=== PATIENT | female | born 1975 | race American Indian/Alaskan Native ===

== ENCOUNTER 2019-03-08 06:48 | Emergency (ER) | payer SELFPAY ==
[2019-03-08] MEDS ORDERED: ASPIRIN PO ONE (07:03)
[2019-03-08 07:28] LABS: Basophils % (Auto) 0.6 % (0.0-1.8); Eosinophils % (Auto) 0.8 % (0.0-4.3); Hematocrit 31.4 % (30.3-42.9); Hemoglobin 10.4 gm/dl (10.1-14.3); Lymphocytes # (Auto) 2.6 K/mm3 (1.2-5.4); Lymphocytes % (Auto) 45.5 % (13.4-35.0); Mean Corpuscular HGB Conc 33 % (30-34); Mean Corpuscular Volume 82 fl (79-97); Monocytes # (Auto) 0.3 K/mm3 (0.0-0.8); Monocytes % (Auto) 5.4 % (0.0-7.3); Platelet Count 234 K/mm3 (140-440); Red Blood Count 3.84 M/mm3 (3.65-5.03); Red Cell Distribution Width 17.7 % (13.2-15.2)
[2019-03-08 07:41] LABS: BUN/Creatinine Ratio 13; Blood Urea Nitrogen 10 mg/dL (7-17); Calcium 8.9 mg/dL (8.4-10.2); Hemolysis Index 17
[2019-03-08] MEDS ORDERED: NITRO-BID 2% TP ONE ×2 (07:58→08:00)
[2019-03-08] MEDS ORDERED: APRESOLINE IV ONE (07:58)
[2019-03-08] MEDS ORDERED: APRESOLINE ONE (08:00)
--- NOTE | 2019-03-08 08:00 | Emergency Department Report ---
ED Chest Pain HPI - General Chief Complaint: Chest Pain Stated Complaint: RT SIDE PAIN/CHEST PAIN Time Seen by Provider: 03/08/19 07:57 Source: patient Mode of arrival: Ambulatory Limitations: No Limitations - History of Present Illness Initial Comments: This is a 43-year-old female with episodic medical care primarily in the emergency department. She states that she was given a prescription for her high blood pressure the last time she was here which appears to be 01/10/2019. She never got it filled. She presents today because she has soreness in her right chest. She stated that she was on her way to work. She was getting ready and putting on her weight. She states her right chest was sore when she was putting on her way. She does not report any radiating pain or any symptoms in the right arm. It is just the anterior pectoral region that is sore. She does not report any shortness of breath cough or recent travel. She was found to have substantial hypertension. He states that her period is over 2 (expected February 21). MD Complaint: chest pain -: Gradual Onset: during rest Pain Location: right chest Pain Radiation: none Severity: moderate Quality: aching Consistency: intermittent Improves With: nothing Worsens With: movement Context: other re: denies: nausea, vomting, diaphoresis, dyspnea, sense of impending doom Other Symptoms: denies: cough, fever, syncope Treatments Prior to Arrival: none - Related Data Previous Rx's Medication Instructions Recorded Last Taken Type Acetaminophen [Tylenol 8 Hour] 650 mg PO TID #30 tablet.er 07/27/18 Unknown Rx Acetaminophen [Tylenol Arthritis] 650 mg PO Q6HR PRN #30 tablet.er 10/02/18 Unknown Rx Ibuprofen [Motrin] 600 mg PO Q8H PRN #30 tablet 10/02/18 Unknown Rx amLODIPine [Norvasc] 5 mg PO DAILY #30 tab 10/02/18 Unknown Rx Dicyclomine [Bentyl] 10 mg PO QID #20 capsule 01/10/19 Unknown Rx Ondansetron [Zofran Odt] 4 mg PO Q8HR #12 tab.rapdis 01/10/19 Unknown Rx Labetalol [Labetalol 100mg TAB] 100 mg PO BID #60 tablet 03/08/19 Unknown Rx Losartan/Hydrochlorothiazide 1 each PO DAILY #30 tablet 03/08/19 Unknown Rx [Losartan-Hctz 50-12.5 mg Tab] Allergies Allergy/AdvReac Type Severity Reaction Status Date / Time No Known Allergies Allergy Unverified 11/21/14 11:30 Heart Score - HEART Score History: Slightly suspicious EKG: Non-specific Age: < 45 Risk factors: 1-2 risk factors Troponin: < normal limit HEART Score: 2 - Critical Actions Critical Actions: 0-3 pts:0.9-1.7%risk of adverse cardiac event.Candidate for discharge ED Review of Systems ROS: Stated complaint: RT SIDE PAIN/CHEST PAIN Other details as noted in HPI Constitutional: denies: chills, fever Eyes: denies: eye pain, eye discharge, vision change ENT: denies: ear pain, throat pain Respiratory: denies: cough, shortness of breath, wheezing Cardiovascular: chest pain. denies: palpitations Endocrine: no symptoms reported Gastrointestinal: denies: abdominal pain, nausea, diarrhea Genitourinary: denies: urgency, dysuria, discharge Musculoskeletal: denies: back pain, joint swelling, arthralgia Skin: denies: rash, lesions Neurological: denies: headache, weakness, paresthesias Psychiatric: denies: anxiety, depression Hematological/Lymphatic: denies: easy bleeding, easy bruising ED Past Medical Hx - Past Medical History Previous Medical History?: Yes Hx Hypertension: Yes Hx Diabetes: No Hx Deep Vein Thrombosis: No Hx Renal Disease: No Hx Sickle Cell Disease: No Hx Seizures: No Hx Asthma: No - Social History Smoking Status: Current Every Day Smoker Other Social History: no recent travel - Medications Home Medications: Home Medications Medication Instructions Recorded Confirmed Last Taken Type Acetaminophen [Tylenol 8 Hour] 650 mg PO TID #30 tablet.er 07/27/18 Unknown Rx Acetaminophen [Tylenol Arthritis] 650 mg PO Q6HR PRN #30 tablet.er 10/02/18 Unknown Rx Ibuprofen [Motrin] 600 mg PO Q8H PRN #30 tablet 10/02/18 Unknown Rx amLODIPine [Norvasc] 5 mg PO DAILY #30 tab 10/02/18 Unknown Rx Dicyclomine [Bentyl] 10 mg PO QID #20 capsule 01/10/19 Unknown Rx Ondansetron [Zofran Odt] 4 mg PO Q8HR #12 tab.rapdis 01/10/19 Unknown Rx Labetalol [Labetalol 100mg TAB] 100 mg PO BID #60 tablet 03/08/19 Unknown Rx Losartan/Hydrochlorothiazide 1 each PO DAILY #30 tablet 03/08/19 Unknown Rx [Losartan-Hctz 50-12.5 mg Tab] ED Physical Exam - General Limitations: No Limitations General appearance: alert, in no apparent distress - Head Head exam: Present: atraumatic, normocephalic - Eye Eye exam: Present: normal appearance. Absent: scleral icterus - ENT ENT exam: Present: mucous membranes moist - Neck Neck exam: Present: normal inspection. Absent: meningismus - Respiratory Respiratory exam: Present: normal lung sounds bilaterally, chest wall tenderness (R). Absent: respiratory distress - Cardiovascular Cardiovascular Exam: Present: regular rate, normal rhythm. Absent: systolic murmur, diastolic murmur, rubs, gallop - GI/Abdominal GI/Abdominal exam: Present: soft, normal bowel sounds. Absent: distended, tenderness, guarding, rebound, rigid - Extremities Exam Extremities exam: Present: normal inspection, normal capillary refill. Absent: pedal edema, joint swelling, calf tenderness - Back Exam Back exam: Present: normal inspection - Neurological Exam Neurological exam: Present: alert, oriented X3 - Psychiatric Psychiatric exam: Present: normal affect, normal mood - Skin Skin exam: Present: warm, dry, intact, normal color. Absent: rash ED Course Vital Signs 03/08/19 03/08/19 03/08/19 06:58 07:45 08:00 Temperature 97.6 F Pulse Rate 77 63 63 Respiratory 16 14 19 Rate Blood Pressure 197/135 198/110 202/115 Blood Pressure [Right] O2 Sat by Pulse 99 96 Oximetry 03/08/19 03/08/19 03/08/19 08:07 08:08 08:09 Temperature 98.2 F Pulse Rate 68 63 Respiratory 24 22 Rate Blood Pressure 202/115 Blood Pressure 202/115 [Right] O2 Sat by Pulse 98 98 Oximetry 03/08/19 03/08/19 03/08/19 09:00 09:02 09:10 Temperature Pulse Rate 87 83 83 Respiratory 14 16 Rate Blood Pressure 176/144 188/116 Blood Pressure 188/116 [Right] O2 Sat by Pulse 95 99 Oximetry 03/08/19 03/08/19 03/08/19 09:15 09:30 09:32 Temperature Pulse Rate 65 67 68 Respiratory 21 12 12 Rate Blood Pressure 172/108 180/112 Blood Pressure 179/104 [Right] O2 Sat by Pulse 97 96 98 Oximetry 03/08/19 03/08/19 03/08/19 09:46 10:00 10:18 Temperature Pulse Rate 64 65 67 Respiratory 21 17 17 Rate Blood Pressure 204/123 181/106 181/106 Blood Pressure [Right] O2 Sat by Pulse 98 97 98 Oximetry 03/08/19 10:43 Temperature Pulse Rate 63 Respiratory 19 Rate Blood Pressure Blood Pressure 158/100 [Right] O2 Sat by Pulse 98 Oximetry TRACE score - Trace Score Age > 65: (0) No Aspirin use within the Past 7 Days: (0) No 3 or more CAD Risk Factors: (0) No 2 or more Angina events in past 24 hrs: (0) No Known CAD with more than 50% Stenosis: (0) No Elevated Cardiac Markers: (0) No ST Deviation Greater than 0.5mm: (0) No TRACE Score: 0 ED Medical Decision Making - Lab Data Result diagrams: 03/08/19 07:15 03/08/19 07:15 Laboratory Results - last 24 hr 03/08/19 03/08/19 07:15 07:15 WBC 5.7 RBC 3.84 Hgb 10.4 Hct 31.4 MCV 82 MCH 27 L MCHC 33 RDW 17.7 H Plt Count 234 Lymph % (Auto) 45.5 H [place] % (Auto) 5.4 Eos % (Auto) 0.8 Baso % (Auto) 0.6 Lymph # 2.6 [place] # 0.3 Eos # 0.0 Baso # 0.0 Seg Neutrophils % 47.7 Seg Neutrophils # 2.7 Sodium 142 Potassium 3.5 L Chloride 105.5 Carbon Dioxide 28 Anion Gap 12 BUN 10 Creatinine 0.8 Estimated GFR > 60 BUN/Creatinine Ratio 13 Glucose 106 H Calcium 8.9 Troponin T < 0.010 Laboratory Results - last 24 hr 03/08/19 03/08/19 03/08/19 07:15 07:15 08:33 WBC 5.7 RBC 3.84 Hgb 10.4 Hct 31.4 MCV 82 MCH 27 L MCHC 33 RDW 17.7 H Plt Count 234 Lymph % (Auto) 45.5 H [place] % (Auto) 5.4 Eos % (Auto) 0.8 Baso % (Auto) 0.6 Lymph # 2.6 [place] # 0.3 Eos # 0.0 Baso # 0.0 Seg Neutrophils % 47.7 Seg Neutrophils # 2.7 PT 12.0 L INR 0.91 APTT 28.0 Sodium 142 Potassium 3.5 L Chloride 105.5 Carbon Dioxide 28 Anion Gap 12 BUN 10 Creatinine 0.8 Estimated GFR > 60 BUN/Creatinine Ratio 13 Glucose 106 H Calcium 8.9 Troponin T < 0.010 Urine Opiates Screen Urine Methadone Screen Ur Barbiturates Screen Ur Phencyclidine Scrn Ur Amphetamines Screen U Benzodiazepines Scrn Urine Cocaine Screen 03/08/19 08:37 WBC RBC Hgb Hct MCV MCH MCHC RDW Plt Count Lymph % (Auto) [place] % (Auto) Eos % (Auto) Baso % (Auto) Lymph # [place] # Eos # Baso # Seg Neutrophils % Seg Neutrophils # PT INR APTT Sodium Potassium Chloride Carbon Dioxide Anion Gap BUN Creatinine Estimated GFR BUN/Creatinine Ratio Glucose Calcium Troponin T Urine Opiates Screen Presumptive negative Urine Methadone Screen Presumptive negative Ur Barbiturates Screen Presumptive negative Ur Phencyclidine Scrn Presumptive negative Ur Amphetamines Screen Presumptive negative U Benzodiazepines Scrn Presumptive negative Urine Cocaine Screen Presumptive negative Laboratory Results - last 24 hr 03/08/19 03/08/19 03/08/19 07:15 07:15 07:15 WBC 5.7 RBC 3.84 Hgb 10.4 Hct 31.4 MCV 82 MCH 27 L MCHC 33 RDW 17.7 H Plt Count 234 Lymph % (Auto) 45.5 H [place] % (Auto) 5.4 Eos % (Auto) 0.8 Baso % (Auto) 0.6 Lymph # 2.6 [place] # 0.3 Eos # 0.0 Baso # 0.0 Seg Neutrophils % 47.7 Seg Neutrophils # 2.7 PT INR APTT D-Dimer Sodium 142 Potassium 3.5 L Chloride 105.5 Carbon Dioxide 28 Anion Gap 12 BUN 10 Creatinine 0.8 Estimated GFR > 60 BUN/Creatinine Ratio 13 Glucose 106 H Calcium 8.9 Magnesium Total Bilirubin Direct Bilirubin Indirect Bilirubin AST ALT Alkaline Phosphatase Total Creatine Kinase CK-MB (CK-2) CK-MB (CK-2) Rel Index Troponin T < 0.010 NT-Pro-B Natriuret Pep Total Protein Albumin Albumin/Globulin Ratio HCG, Qual Negative Urine Opiates Screen Urine Methadone Screen Ur Barbiturates Screen Ur Phencyclidine Scrn Ur Amphetamines Screen U Benzodiazepines Scrn Urine Cocaine Screen U Marijuana (THC) Screen Drugs of Abuse Note 03/08/19 03/08/19 03/08/19 08:33 08:33 08:37 WBC RBC Hgb Hct MCV MCH MCHC RDW Plt Count Lymph % (Auto) [place] % (Auto) Eos % (Auto) Baso % (Auto) Lymph # [place] # Eos # Baso # Seg Neutrophils % Seg Neutrophils # PT 12.0 L INR 0.91 APTT 28.0 D-Dimer 194.86 Sodium Potassium Chloride Carbon Dioxide Anion Gap BUN Creatinine Estimated GFR BUN/Creatinine Ratio Glucose Calcium Magnesium 1.70 Total Bilirubin 0.20 Direct Bilirubin < 0.2 Indirect Bilirubin 0.0 AST 13 ALT 9 Alkaline Phosphatase 53 Total Creatine Kinase 99 CK-MB (CK-2) 1.2 CK-MB (CK-2) Rel Index 1.2 Troponin T < 0.010 NT-Pro-B Natriuret Pep 146.9 Total Protein 6.9 Albumin 3.7 L Albumin/Globulin Ratio 1.2 HCG, Qual Urine Opiates Screen Presumptive negative Urine Methadone Screen Presumptive negative Ur Barbiturates Screen Presumptive negative Ur Phencyclidine Scrn Presumptive negative Ur Amphetamines Screen Presumptive negative U Benzodiazepines Scrn Presumptive negative Urine Cocaine Screen Presumptive negative U Marijuana (THC) Screen Presumptive positive Drugs of Abuse Note Disclamer - EKG Data -: EKG Interpreted by Me EKG shows normal: sinus rhythm, axis, intervals, QRS complexes, ST-T waves Rate: normal - EKG Data Interpretation: no acute changes, other (consider left atrial enlargement) - Radiology Data Radiology results: report reviewed (chest x-ray normal per radiologist) Chest x-ray no acute process Critical care attestation.: If time is entered above; I have spent that time in minutes in the direct care of this critically ill patient, excluding procedure time. ED Disposition Clinical Impression: Chest wall pain, Essential hypertension Disposition: DC-01 TO HOME OR SELFCARE Is pt being admited?: No Does the pt Need Aspirin: No Condition: Stable Instructions: Chest Pain (ED), Hypertension (ED) Additional Instructions: Return to the emergency department any acute change or worsening symptoms. Rx as directed. Follow-up is essential. See referral. Prescriptions: Labetalol [Labetalol 100mg TAB] 100 mg PO BID #60 tablet Losartan/Hydrochlorothiazide [Losartan-Hctz 50-12.5 mg Tab] 1 each PO DAILY #30 tablet Referrals: FANTA CORDOVA MD [Primary Care Provider] - 24 Hours Time of Disposition: 11:11
[2019-03-08] MEDS ORDERED: MORPHINE IV ONE (08:09)
[2019-03-08] MEDS ORDERED: ZOFRAN IV ONE (08:09)
[2019-03-08 09:03] LABS: Amphetamine Screen,Urine PRESUMPTIVE NEGATIVE; Benzodiazepines Screen,Urine PRESUMPTIVE NEGATIVE; Cocaine Screen,Urine PRESUMPTIVE NEGATIVE; Methadone Screen,Urine PRESUMPTIVE NEGATIVE; Opiate Screen,Urine PRESUMPTIVE NEGATIVE
[2019-03-08 09:04] LABS: INR 0.91 (0.87-1.13)
[2019-03-08] MEDS ORDERED: NORMODYNE IV ONE ×2 (09:04→09:09)
[2019-03-08 09:14] LABS: Creatine Kinase MB 1.2 ng/mL (0.0-4.0)
[2019-03-08 09:16] LABS: Alanine Aminotransferase 9 units/L (7-56); Albumin 3.7 g/dL (3.9-5)
[2019-03-08 09:17] LABS: Bilirubin,Direct < 0.2 mg/dL (0-0.2)
[2019-03-08 09:21] LABS: Cannabinoid Screen,Urine PRESUMPTIVE POSITIVE
--- NOTE | 2019-03-08 09:58 | XRay Report ---
CHEST 1 VIEW INDICATION / CLINICAL INFORMATION: Chest Pain. COMPARISON: None available. FINDINGS: SUPPORT DEVICES: None. HEART / MEDIASTINUM: No significant abnormality. LUNGS / PLEURA: No significant pulmonary or pleural abnormality.. No pneumothorax. ADDITIONAL FINDINGS: No significant additional findings. IMPRESSION: 1. No acute findings. Signer Name: Jose Antonio Zavala MD Signed: 03/08/2019 9:53 AM Workstation Name: [id number]
[2019-03-08 10:44] VITALS: BP 158/100
== END 2019-03-08 11:59 | disposition home or self-care (01) ==
LOC: ED 06:48
DX: R07.89 Other chest pain (principal); I10 Essential (primary) hypertension; F17.200 Nicotine dependence, unspecified, uncomplicated; Z79.899 Other long term (current) drug therapy
CPT/HCPCS: 36415; 71045; 80048; 80076; 80307; 82550; 82553; 83735; 83880; 84484; 84703; 85025; 85379; 85610; 85730; 93005; 93010; 96374; 96375; 99284; J0360; J2270; J2405

== ENCOUNTER 2019-03-26 00:35 | Emergency (ER) | payer SELFPAY ==
[2019-03-26] MEDS ORDERED: TYLENOL PO ONE (00:50)
[2019-03-26 03:01] LABS: Bilirubin,Urine NEG (Negative); Blood,Urine NEG (Negative); Color,Urine Yellow (Yellow); Mucus,Urine 3+ /HPF; Protein,Urine <15 mg/dL mg/dL (Negative)
[2019-03-26 03:04] LABS: HCG Qualitative,Urine Negative (Negative)
[2019-03-26] MEDS ORDERED: PEPCID IV ONE (03:20)
[2019-03-26] MEDS ORDERED: TORADOL IV ONE (03:20)
[2019-03-26] MEDS ORDERED: ZOFRAN IV ONE (03:21)
[2019-03-26 03:37] LABS: Basophils # (Auto) 0.1 K/mm3 (0.0-0.1); Basophils % (Auto) 0.8 % (0.0-1.8); Eosinophils % (Auto) 0.5 % (0.0-4.3); Hematocrit 32.8 % (30.3-42.9); Hemoglobin 10.7 gm/dl (10.1-14.3); Lymphocytes # (Auto) 2.3 K/mm3 (1.2-5.4); Lymphocytes % (Auto) 38.8 % (13.4-35.0); Mean Corpuscular HGB Conc 33 % (30-34); Mean Corpuscular Volume 82 fl (79-97); Monocytes # (Auto) 0.4 K/mm3 (0.0-0.8); Monocytes % (Auto) 6.3 % (0.0-7.3); Platelet Count 270 K/mm3 (140-440); Red Blood Count 3.99 M/mm3 (3.65-5.03); Red Cell Distribution Width 17.5 % (13.2-15.2)
[2019-03-26 04:02] LABS: Alanine Aminotransferase 10 units/L (7-56); Albumin 3.9 g/dL (3.9-5); BUN/Creatinine Ratio 13; Blood Urea Nitrogen 9 mg/dL (7-17); Calcium 8.9 mg/dL (8.4-10.2); Hemolysis Index 5
--- NOTE | 2019-03-26 04:47 | Ultrasound Report ---
ULTRASOUND ABDOMEN, LIMITED (RIGHT UPPER QUADRANT) INDICATION: RUQ Pain. COMPARISON: None available. FINDINGS: Pancreas: Visualized portion shows no significant abnormality. Liver: Normal. Gallbladder: Normal. Bile ducts: Normal. Common Bile Duct measures 3.1 mm. Free fluid: None. Additional Findings: None. IMPRESSION: 1. No sonographic abnormality of the right upper quadrant. Signer Name: José Manuel Bailey MD Signed: 03/26/2019 4:42 AM Workstation Name: [id number]
--- NOTE | 2019-03-26 04:51 | Emergency Department Report ---
ED Abdominal Pain HPI - General Chief Complaint: Abdominal Pain Stated Complaint: 8 WEEKS RIGHT SIDE PAIN Time Seen by Provider: 03/26/19 03:10 Source: patient Mode of arrival: Ambulatory Limitations: No Limitations - History of Present Illness Initial Comments: Patient is a 43-year-old -[place]ol[place] female with no past medical history who presents to the ED accompanied acute onset of persistent severe right upper quadrant pain for the last 3 hours with nausea. Patient states that the pain is constant and persistent and that it is worse with palpation or taking a deep breath. Patient denies vomiting, dysuria, urinary frequency and urgency, vaginal bleeding, vaginal discharge, fever, chills, chest pain, shortness of breath, headache, diaphoresis, hematuria, or vaginal discharge, heavy lifting or traumatic injury. MD Complaint: abdominal pain, other (nausea) -: Sudden, hour(s) (3) Location: RUQ Radiation: none Migration to: no migration Severity scale (0 -10): 10 Quality: aching, sharp Consistency: constant Improves With: nothing Worsens With: movement Associated Symptoms: nausea. denies: vomiting, diarrhea, fever, chills, constipation, hematuria, anorexia, syncope - Related Data Previous Rx's Medication Instructions Recorded Last Taken Type Labetalol [Labetalol 100mg TAB] 100 mg PO BID #60 tablet 03/08/19 Unknown Rx Losartan/Hydrochlorothiazide 1 each PO DAILY #30 tablet 03/08/19 Unknown Rx [Losartan-Hctz 50-12.5 mg Tab] traMADol [Ultram] 50 mg PO Q6HR PRN #10 tablet 03/08/19 Unknown Rx Dicyclomine [Bentyl] 20 mg PO Q6H PRN #24 tablet 03/26/19 Unknown Rx Ondansetron [Zofran ODT TAB] 8 mg PO Q8HR PRN #21 tab.rapdis 03/26/19 Unknown Rx raNITIdine HCl [Zantac] 150 mg PO Q12H #30 tablet 03/26/19 Unknown Rx Allergies Allergy/AdvReac Type Severity Reaction Status Date / Time No Known Allergies Allergy Unverified 11/21/14 11:30 ED Review of Systems ROS: Stated complaint: 8 WEEKS RIGHT SIDE PAIN Other details as noted in HPI Constitutional: denies: chills, fever Eyes: denies: eye pain, eye discharge, vision change ENT: denies: ear pain, throat pain Respiratory: denies: cough, shortness of breath, wheezing Cardiovascular: denies: chest pain, palpitations Endocrine: no symptoms reported Gastrointestinal: abdominal pain, nausea. denies: diarrhea Genitourinary: denies: urgency, dysuria, discharge Musculoskeletal: denies: back pain, joint swelling, arthralgia Skin: denies: rash, lesions Neurological: denies: headache, weakness, paresthesias Psychiatric: denies: anxiety, depression Hematological/Lymphatic: denies: easy bleeding, easy bruising ED Past Medical Hx - Past Medical History Previous Medical History?: Yes Hx Hypertension: Yes Hx Diabetes: No Hx Deep Vein Thrombosis: No Hx Renal Disease: No Hx Sickle Cell Disease: No Hx Seizures: No Hx Asthma: No - Surgical History Past Surgical History?: No - Social History Smoking Status: Current Every Day Smoker Substance Use Type: None - Medications Home Medications: Home Medications Medication Instructions Recorded Confirmed Last Taken Type Labetalol [Labetalol 100mg TAB] 100 mg PO BID #60 tablet 03/08/19 Unknown Rx Losartan/Hydrochlorothiazide 1 each PO DAILY #30 tablet 03/08/19 Unknown Rx [Losartan-Hctz 50-12.5 mg Tab] traMADol [Ultram] 50 mg PO Q6HR PRN #10 tablet 03/08/19 Unknown Rx Dicyclomine [Bentyl] 20 mg PO Q6H PRN #24 tablet 03/26/19 Unknown Rx Ondansetron [Zofran ODT TAB] 8 mg PO Q8HR PRN #21 tab.rapdis 03/26/19 Unknown Rx raNITIdine HCl [Zantac] 150 mg PO Q12H #30 tablet 03/26/19 Unknown Rx ED Physical Exam - General Limitations: No Limitations General appearance: alert, in no apparent distress - Head Head exam: Present: atraumatic, normocephalic, normal inspection - Eye Eye exam: Present: normal appearance, PERRL, EOMI. Absent: scleral icterus, conjunctival injection Pupils: Present: normal accommodation - ENT ENT exam: Present: normal exam, normal orophraynx, mucous membranes moist, TM's normal bilaterally, normal external ear exam - Neck Neck exam: Present: normal inspection, full ROM. Absent: tenderness - Respiratory Respiratory exam: Present: normal lung sounds bilaterally. Absent: respiratory distress, wheezes, rales, rhonchi, chest wall tenderness, accessory muscle use, decreased breath sounds - Cardiovascular Cardiovascular Exam: Present: regular rate, normal rhythm, normal heart sounds. Absent: systolic murmur, diastolic murmur, rubs, gallop - GI/Abdominal GI/Abdominal exam: Present: soft, tenderness (Palpable severe right upper quad rant tenderness with guarding, positive Pena sign), guarding, normal bowel sounds. Absent: rebound, hyperactive bowel sounds, hypoactive bowel sounds, organomegaly, mass, pulsatile mass - Rectal Rectal exam: Present: deferred - Extremities Exam Extremities exam: Present: normal inspection, full ROM, normal capillary refill - Back Exam Back exam: Present: normal inspection, full ROM. Absent: tenderness, CVA tenderness (R), CVA tenderness (L), muscle spasm, paraspinal tenderness, vertebral tenderness - Neurological Exam Neurological exam: Present: alert, oriented X3, CN II-XII intact, normal gait, reflexes normal - Psychiatric Psychiatric exam: Present: normal affect, normal mood - Skin Skin exam: Present: warm, dry, intact, normal color. Absent: rash ED Course Vital Signs 03/26/19 00:39 Temperature 98.5 F Pulse Rate 74 Respiratory 16 Rate Blood Pressure 166/111 O2 Sat by Pulse 100 Oximetry - Reevaluation(s) Reevaluation #1: 03/26/19 04:50 This is a 43-year-old -[place] female who presented to the ED with acute onset severe right upper quadrant pain with nausea. In the ED, patient is alert and oriented 3 and is not in distress but in pain. Labs are drawn and right upper quadrant gallbladder ultrasound also ordered. Patient was treated for pain and nausea in the ED. The RUQ ultrasound shows a normal gallbladder, and normal gallbladder wall thickness and no pericholecystic fluid. These findings suggest that the patient's symptoms are likely due to acute gastritis or GERD complications. Patient was discharged home on pain medications and antiemetics as well as antacids and advised to follow-up with her primary care p felix in 5-7 days for reevaluation or return to the ED immediately if symptoms get worse. 03/26/19 05:04 ED Medical Decision Making - Lab Data Result diagrams: 03/26/19 03:27 03/26/19 03:27 - Radiology Data Radiology results: report reviewed, image reviewed Gallbladder US: Normal gallbladder and gallbladder wall thickness, or no gallstones - Medical Decision Making This is a 43-year-old -[place] female who presented to the ED with acute onset severe right upper quadrant pain with nausea. In the ED, patient is alert and oriented 3 and is not in distress but in pain. Labs are drawn and right upper quadrant gallbladder ultrasound also ordered. Patient was treated for pain and nausea in the ED. The RUQ ultrasound shows a normal gallbladder, and normal gallbladder wall thickness and no pericholecystic fluid. These findings suggest that the patient's symptoms are likely due to acute gastritis or GERD complications. Patient was discharged home on pain medications and antiemetics as well as antacids and advised to follow-up with her primary care physician in 5-7 days for reevaluation or return to the ED immediately if symptoms get worse. - Differential Diagnosis abdominal pain; GERD; Acute gastritis Critical care attestation.: If time is entered above; I have spent that time in minutes in the direct care of this critically ill patient, excluding procedure time. ED Disposition Clinical Impression: Acute abdominal pain in right upper quadrant GERD (gastroesophageal reflux disease) Qualifiers: Esophagitis presence: without esophagitis Qualified Code(s): K21.9 - Gastro- esophageal reflux disease without esophagitis Acute gastritis Qualifiers: Gastritis type: other gastritis Gastritis bleeding: without bleeding Qualified Code(s): K29.00 - Acute gastritis without bleeding Disposition: - TO HOME OR SELFCARE Is pt being admited?: No Does the pt Need Aspirin: No Condition: Stable Instructions: Abdominal Pain (ED), Gastroesophageal Reflux Disease (ED), Gastritis (ED) Additional Instructions: Take medications with food, drink plenty of fluids and follow up with your primary care physician in 5-7 days for reevaluation. Return to the ED immediately if symptoms get worse. Prescriptions: Dicyclomine [Bentyl] 20 mg PO Q6H PRN #24 tablet PRN Reason: Pain , Severe (7-10) raNITIdine HCl [Zantac] 150 mg PO Q12H #30 tablet Ondansetron [Zofran ODT TAB] 8 mg PO Q8HR PRN #21 tab.rapdis PRN Reason: Nausea Referrals: FANTA CORDOVA MD [Primary Care Provider] - 3-5 Days Time of Disposition: 05:07 Print Language: FARO[place]
[2019-03-26 06:08] VITALS: BP 177/100
== END 2019-03-26 05:45 | disposition home or self-care (01) ==
LOC: ED 00:35
DX: K21.9 Gastro-esophageal reflux disease without esophagitis (principal); K29.00 Acute gastritis without bleeding; I10 Essential (primary) hypertension; F17.200 Nicotine dependence, unspecified, uncomplicated; Z79.899 Other long term (current) drug therapy
CPT/HCPCS: 36415; 76705; 80053; 81001; 81025; 83690; 85025; 99284; J1885; J2405

== ENCOUNTER 2019-09-05 17:01 | Emergency (ER) | payer SELFPAY ==
[2019-09-05] MEDS ORDERED: cloNIDine 0.2 MG TAB PO ONE (22:09)
[2019-09-05] MEDS ORDERED: cloNIDine 0.2 MG TAB ONE (22:11)
--- NOTE | 2019-09-05 23:03 | Emergency Department Report ---
HPI - General Chief Complaint: Back Pain/Injury Time Seen by Provider: 09/05/19 22:07 - HPI HPI: 44-year-old -[place] female presents to the emergency department with the complaint of a 3 week history of some low back pain. She also says that it will intermittently radiate down the left leg. She denies any problems with bowel or bladder, numbness or paresthesias, denies problems with ambulation, or any neurological deficits. She has not taken anything for her symptoms prior to presentation. She does admit to a history in the past of some type of pinched nerve or "I pulled my back out once." She also presents with very elevated blood pressure and does have history of hypertension but has been out of her medication for the past week. She does not have a primary care physician and admits that she gets all of her refills done through emergency departments. Secondarily, the patient asked if she was going through menopause as she says that she has not had a menstrual cycle for the past 3 months. She denies any dysuria, vaginal bleeding or discharge. ED Past Medical Hx - Past Medical History Previous Medical History?: Yes Hx Hypertension: Yes Hx Diabetes: No Hx Deep Vein Thrombosis: No Hx Renal Disease: No Hx Sickle Cell Disease: No Hx Seizures: No Hx Asthma: No - Surgical History Past Surgical History?: No - Social History Smoking Status: Never Smoker Substance Use Type: None - Medications Home Medications: Home Medications Medication Instructions Recorded Confirmed Last Taken Type traMADoL [Ultram] 50 mg PO Q6HR PRN #10 tablet 03/08/19 Unknown Rx Dicyclomine [Bentyl] 20 mg PO Q6H PRN #24 tablet 03/26/19 Unknown Rx Ondansetron [Zofran ODT TAB] 8 mg PO Q8HR PRN #21 tab.rapdis 03/26/19 Unknown Rx raNITIdine HCl [Zantac] 150 mg PO Q12H #30 tablet 03/26/19 Unknown Rx Cyclobenzaprine [Flexeril] 10 mg PO TID PRN #12 tablet 09/06/19 Unknown Rx Ibuprofen [Motrin 800 MG tab] 800 mg PO Q8HR PRN #20 tablet 09/06/19 Unknown Rx Losartan/Hydrochlorothiazide 1 each PO DAILY #30 tablet 09/06/19 Unknown Rx [Losartan-Hctz 50-12.5 mg Tab] labetaloL [Labetalol 100mg TAB] 100 mg PO BID #60 tablet 09/06/19 Unknown Rx ED Review of Systems ROS: Stated complaint: PULLED MUSCLE/BACK PAIN Other details as noted in HPI Comment: All other systems reviewed and negative Constitutional: denies: chills, fever Respiratory: denies: shortness of breath Cardiovascular: denies: chest pain Gastrointestinal: denies: abdominal pain Genitourinary: denies: dysuria, discharge Musculoskeletal: back pain. denies: arthralgia Skin: denies: rash, lesions Neurological: denies: headache, weakness Physical Exam - Physical Exam Vital Signs: Vital Signs 09/05/19 09/05/19 09/05/19 18:49 21:45 22:36 Temperature 98.6 F 98.5 F Pulse Rate 70 61 89 Respiratory 18 18 Rate Blood Pressure 219/130 189/103 Blood Pressure 189/103 [Right] O2 Sat by Pulse 100 100 Oximetry Physical Exam: GENERAL: The patient is well-developed well-nourished. HEENT: Normocephalic. Atraumatic. Patient has moist mucous membranes. EYES: Extraocular motions are intact. NECK: Supple. Trachea is midline CHEST/LUNGS: Clear to auscultation. There is no respiratory distress noted. HEART/CARDIOVASCULAR: Regular. There is no tachycardia. ABDOMEN: There is no abdominal distention. SKIN: Skin is warm and dry. NEURO: The patient is awake, alert, and oriented. The patient is cooperative. The patient has no focal neurologic deficits. Normal speech. MUSCULOSKELETAL: There is no tenderness or deformity. There is no limitation range of motion. There is no evidence of acute injury. BACK: There is some midline and left lower lumbar paraspinal tenderness to palpation. No step-off or deformity. ED Course Vital Signs 09/05/19 09/05/19 09/05/19 18:49 21:45 22:36 Temperature 98.6 F 98.5 F Pulse Rate 70 61 89 Respiratory 18 18 Rate Blood Pressure 219/130 189/103 Blood Pressure 189/103 [Right] O2 Sat by Pulse 100 100 Oximetry - Reevaluation(s) Reevaluation #1: 09/06/19 02:35 Labs 09/05/19 22:36 Urine Color Yellow Urine Turbidity Slightly-cloudy Urine pH 5.0 Ur Specific [place] 1.023 Urine Protein <15 mg/dl Urine Glucose (UA) Neg Urine Ketones Neg Urine Blood Neg Urine Nitrite Neg Urine Bilirubin Neg Urine Urobilinogen < 2.0 Ur Leukocyte Esterase Neg Urine WBC (Auto) 2.0 Urine RBC (Auto) 2.0 U Epithel Cells (Auto) 9.0 Urine Mucus 3+ Urine HCG, Qual Negative ED Medical Decision Making - Medical Decision Making This patient presents to the emergency department with a 3 week history of some left lower back pain that radiates down her left leg. Pain seems to worsen when she moves the leg and with ambulation. She says that there may have been some time 3 weeks ago where she stretched and injured herself but there was no obvious trauma. The patient also denies any problems with bowel or bladder, numbness or paresthesias or any neurological deficits. For these reasons I did not feel that the patient required any imaging at this time. She also appears low suspicion for any of the emergent conditions such as cauda equina, cord compression syndrome or epidural abscess. The patient was given a shot of Toradol and will be given a prescription for Flexeril and ibuprofen. She will also be given a referral for 2 different local orthopedic groups to follow-up regarding her back pains. The patient presented with elevated blood pressure. She has a history of hypertension and some recent medication noncompliance for the past week. She was given some Catapres here and it came down to a more reasonable level. The patient will be given a prescription for her blood pressure medications. She was also given a referral for [facility]. She will return to the emergency department with any worsening of her symptoms or with any acute distress. The patient was seen ambulatory in the emergency department prior to discharge and appears stable. - Differential Diagnosis lumbar muscle spasm, lumbar strain, sciatica, UTI Critical Care Time: No Critical care attestation.: If time is entered above; I have spent that time in minutes in the direct care of this critically ill patient, excluding procedure time. ED Disposition Clinical Impression: Hypertension Qualifiers: Hypertension type: essential hypertension Qualified Code(s): I10 - Essential (primary) hypertension Low back pain Qualifiers: Chronicity: unspecified Back pain laterality: left Sciatica presence: with sciatica Sciatica laterality: sciatica of left side Qualified Code(s): M54.42 - Lumbago with sciatica, left side Sciatica Qualifiers: Laterality: left Qualified Code(s): M54.32 - Sciatica, left side Disposition: TO HOME OR SELFCARE Is pt being admited?: No Condition: Stable Instructions: Sciatica (ED), Hypertension (ED), Back Pain (ED) Additional Instructions: Please follow up with a primary care physician in the next few days. I am giving you a referral for two local orthopedists, Dr. Lopez and Francisco, to follow up regarding her back pain. Take the blood pressure medication as prescribed. Please try and stay away from foods that are high in salt and caffeinated products. Keep a blood pressure log. You have been prescribed a muscle relaxer that can be sedating. Therefore, this medication cannot be taken prior to driving, working, being responsible for children, and cannot be mixed with alcohol of any quantity. Prescriptions: Cyclobenzaprine [Flexeril] 10 mg PO TID PRN #12 tablet PRN Reason: Muscle Spasm labetaloL [Labetalol 100mg TAB] 100 mg PO BID #60 tablet Losartan/Hydrochlorothiazide [Losartan-Hctz 50-12.5 mg Tab] 1 each PO DAILY #30 tablet Ibuprofen [Motrin 800 MG tab] 800 mg PO Q8HR PRN #20 tablet PRN Reason: Pain , Severe (7-10) Referrals: PRIMARY CAREMD [Primary Care Provider] - 2-3 Days RUBA LOPEZ MD [Staff Physician] - 2-3 Days [facility] [Provider Group] - 2-3 Days [facility] [Outside] - 2-3 Days Time of Disposition: 00:22
[2019-09-05 23:37] LABS: Bilirubin,Urine NEG (Negative); Blood,Urine NEG (Negative); Color,Urine Yellow (Yellow); Mucus,Urine 3+ /HPF; Protein,Urine <15 mg/dL mg/dL (Negative); Urobilinogen,Urine < 2.0 mg/dL (<2.0)
[2019-09-06 00:09] LABS: HCG Qualitative,Urine Negative (Negative)
[2019-09-06] MEDS ORDERED: KETOROLAC 30 MG/1 ML INJ IM ONE (00:15)
[2019-09-06 01:24] VITALS: BP 172/109
== END 2019-09-06 06:44 | disposition home or self-care (01) ==
LOC: ED 17:01
DX: M54.42 Lumbago with sciatica, left side (principal); I10 Essential (primary) hypertension; Z79.899 Other long term (current) drug therapy
CPT/HCPCS: 81001; 81025; 96372; 99283; J1885

== ENCOUNTER 2019-10-12 16:44 | Emergency (ER) | payer SELFPAY ==
[2019-10-12 17:46] VITALS: BP 186/109
--- NOTE | 2019-10-12 17:46 | Emergency Department Report ---
{null, Blank Doc - Documentation Documentation: 44-year-old female that presents with lower back pain that has worsen the last few weeks. Stated has abnormal gait and difficulty walking. This initial assessment/diagnostic orders/clinical plan/treatment(s) is/are subject to change based on patient's health status, clinical progression and re- assessment by fellow clinical providers in the ED. Further treatment and workup at subsequent clinical providers discretion. Patient/guardians urged not to elope from the ED as their condition may be serious if not clinically assessed and managed. Initial orders include: 1- Patient sent to [facility] for further evaluation and treatment 2- xrays }
--- NOTE | 2019-10-12 18:33 | XRay Report ---
{null, LUMBAR SPINE 3 VIEWS INDICATION: low back pain. COMPARISON: No relevant prior imaging study available. FINDINGS: Lumbar vertebral body height and disc space height is maintained. Alignment is normal. There is very mild lower lumbar facet arthropathy. SI joints are within normal limits. IMPRESSION: 1. No acute findings. Signer Name: Rangel Zamudio MD Signed: 10/12/2019 6:28 PM Workstation Name: [email or web address] }
[2019-10-12] MEDS ORDERED: KETOROLAC 30 MG/1 ML INJ IM ONE (21:00)
--- NOTE | 2019-10-12 21:21 | Emergency Department Report ---
{null, Chief Complaint: Back Pain/Injury Stated Complaint: BACK PAIN Time Seen by Provider: 10/12/19 17:43 - HPI History of Present Illness: Ms. Saldana is a 44-year-old female that presents with lower back pain that has worsen the last few weeks. Stated has abnormal gait and difficulty walking. she denies numbness no tingling no weakness no loss or decrease in bowel or bladder function. she is ambulatory with steady gait at this time. - ROS Review of Systems: all normal - Exam Vital Signs: Vital Signs 10/12/19 10/12/19 17:45 21:10 Temperature 98.3 F Pulse Rate 78 Respiratory 20 16 Rate Blood Pressure 186/109 O2 Sat by Pulse 100 Oximetry Physical Exam: no posterior vertebral point tenderness,. pos straight leg left, no weakness pt is ambulatory with steady gait, ambulated from room to bathroom and back to room without gait disturbance , MSE screening note: Focused history and physical exam performed. Due to findings pt does not have and emergency medical condition , plan: moist heat therapy follow up with ortho as scheduled. pt verbalized agreement and understanding of discharge plan. ED Disposition for MSE Clinical Impression: Chronic back pain Qualifiers: Back pain location: low back pain Back pain laterality: left Sciatica presence: with sciatica Sciatica laterality: sciatica of left side Qualified Code(s): M54.42 - Lumbago with sciatica, left side; G89.29 - Other chronic pain Disposition: MED SCREENING EXAM-LEFT Is pt being admited?: No Does the pt Need Aspirin: No Condition: Stable Instructions: Chronic Back Pain (ED) Prescriptions: Naproxen 500 mg PO BID PRN #30 tablet PRN Reason: pain Time of Disposition: 21:21 }
== END 2019-10-12 21:31 | disposition left against medical advice (07) ==
LOC: ED 16:44
DX: M54.5 Low back pain (principal); G89.29 Other chronic pain
CPT/HCPCS: 72100; 96372; 99283; J1885

== ENCOUNTER 2021-05-03 09:32 | Emergency (ER) | payer MEDICAID ==
[2021-05-03 09:46] VITALS: BP 173/115
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
[2021-05-03] MEDS ORDERED: IBUPROFEN 800 MG TAB PO ONE (11:45)
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
== END 2021-05-03 12:19 | disposition home or self-care (01) ==
LOC: ED 09:32
DX: S46.912A Strain of unspecified muscle, fascia and tendon at shoulder and upper arm level, left arm, initial encounter (principal); I10 Essential (primary) hypertension; V49.9XXA Car occupant (driver) (passenger) injured in unspecified traffic accident, initial encounter; Y93.89 Activity, other specified; Y92.89 Other specified places as the place of occurrence of the external cause; Y99.8 Other external cause status
CPT/HCPCS: 99283